=== PATIENT | female | born 1995 | race Two or more races ===

== ENCOUNTER 2021-11-22 18:01 | Inpatient (IN) | payer MEDICAID, SELFPAY ==
[~2021-11-22] VITALS: Ht 165.1 cm; Wt 83.0 kg
[2021-11-22] MEDS ORDERED: LR 1,000 ML IV ONE (19:30)
[2021-11-22] MEDS ORDERED: OXYTOCIN/0.9 % SODIUM CHLORIDE 1,000 ML IV SCH ×2 (19:30→19:45)
[2021-11-22] MEDS ORDERED: TERBUTALINE SULFATE 1 MG/ML VIAL SUBCUT ONE (19:30)
[2021-11-22] MEDS ORDERED: LR 1,000 ML IV SCH (19:30)
[2021-11-22] MEDS ORDERED: NALBUPHINE HCL 10 MG/ML AMP IVP PRN (19:30)
[2021-11-22] MEDS ORDERED: OXYTOCIN/0.9 % SODIUM CHLORIDE 1,000 ML IV ONE ×2 (19:36→19:45)
[2021-11-22] MEDS ORDERED: LANOLIN 7 GM OINT. TP PRN (19:45)
[2021-11-22] MEDS ORDERED: HYDROCORTISONE 0.5% CREAM 28.4 GM CREAM.GM. TP PRN (19:45)
[2021-11-22] MEDS ORDERED: DERMOPLAST SPRAY TP PRN (19:45)
[2021-11-22] MEDS ORDERED: ANUSOL 1 EA SUPP.RECT (PREPARATION H) RC PRN (19:45)
[2021-11-22] MEDS ORDERED: OXYCODONE/ACETAMINOPHEN 5-325 TABLET PO PRN ×2 (19:45)
[2021-11-22] MEDS ORDERED: METHYLERGONOVINE MALEATE 0.2 MG TABLET PO PRN (19:45)
[2021-11-22] MEDS ORDERED: WITCH HAZEL LEAF 1 MED.PAD MED.PAD TP PRN (19:45)
[2021-11-22] MEDS ORDERED: METHYLERGONOVINE MALEATE 0.2 MG/ML AMP IM ONE (20:06)
[2021-11-22] MEDS ORDERED: METHYLERGONOVINE MALEATE 0.2 MG/ML AMP ONE (20:06)
[2021-11-22 20:24] LABS: BASOPHILS % (AUTO) 0.2 % (0.0-2.0); EOSINOPHILS % (AUTO) 0.3 % (0.0-4.0); HEMATOCRIT 33.1 % (36-48); HEMOGLOBIN 10.7 g/dL (12.0-16.0); LYMPHOCYTES # (AUTO) 2.2 K/uL (1.0-5.5); LYMPHOCYTES % (AUTO) 19.6 % (20.5-51.5); MEAN CORPUSCULAR HEMOGLOBIN 26 pg (27-31); MEAN CORPUSCULAR HGB CONC 32 % (32-36); MEAN CORPUSCULAR VOLUME 80 fL (79.0-98.0); MONOCYTES # (AUTO) 0.7 K/uL (0.0-1.0); MONOCYTES % (AUTO) 6.5 % (1.7-9.3); NEUTROPHILS # (AUTO) 8.1 K/uL (1.8-7.7); NEUTROPHILS % (AUTO) 73.4 % (40.0-70.0); PLATELET COUNT (AUTO) 305 K/uL (130-430); RED BLOOD CELL COUNT(AUTO) 4.13 MIL/uL (4.2-6.2); RED CELL DISTRIBUTION WIDTH 14.5 % (9.0-15.0)
[2021-11-22] MEDS ORDERED: TEMAZEPAM 15 MG CAPSULE PO PRN (21:00)
[2021-11-22] MEDS ORDERED: SENNOSIDES/DOCUSATE SODIUM 1 TAB TABLET(SENOKOT-S) PO SCH (21:00)
[2021-11-22 21:24] VITALS: BP_SYST 125
[2021-11-23] MEDS: IBUPROFEN 800 MG TABLET PO PRN ×2 (00:39→21:23)
[2021-11-23 07:46] LABS: HEMATOCRIT 30.5 % (36-48); HEMOGLOBIN 9.9 g/dL (12.0-16.0)
[2021-11-23] MEDS: DOCUSATE SODIUM 100 MG CAPSULE PO SCH (12:21)
[2021-11-23 20:00] VITALS: BP_SYST 108
[2021-11-24 00:30] VITALS: BP_SYST 95
[2021-11-24] MEDS: IBUPROFEN 800 MG TABLET PO PRN ×2 (05:34→11:58)
[2021-11-24] MEDS: DOCUSATE SODIUM 100 MG CAPSULE PO SCH (09:35)
[2021-11-28 20:06] LABS: FTA-Ab (T PALLIDUM) Non Reactive (Non Reactive)
== END 2021-11-24 15:18 | disposition home or self-care (01) | DRG 560 ==
LOC: SPU 18:01 → OBSVTOIN 18:01
PROVIDERS: ADMIT Obstetrics & Gynecology; ATTEND Obstetrics & Gynecology
PROC: 10D07Z6 Extraction of Products of Conception, Vacuum, Via Natural or Artificial Opening (ICD-10-PCS; principal; 2021-11-22)
DX: O24.420 Gestational diabetes mellitus in childbirth, diet controlled (principal); Z37.0 Single live birth; O69.81X0 Labor and delivery complicated by cord around neck, without compression, not applicable or unspecified; O70.0 First degree perineal laceration during delivery; Z3A.38 38 weeks gestation of pregnancy; Z20.822 Contact with and (suspected) exposure to COVID-19
CPT/HCPCS: 36415; 85018; 85025; 86592; 86780; 86886; 86900; 86901; J2210; J2590